=== PATIENT | male | born 1945 | race African-American/Black ===

== ENCOUNTER 2016-11-10 11:00 | Emergency (ER) | payer MEDICARE, BC ==
[~2016-11-10] VITALS: Ht 182.9 cm; Wt 102.0 kg
[~2016-11-10 11:00] MED LIST: SIMV10TA6 PO
[2016-11-10 11:54] VITALS: BP 136/86
[2016-11-10 12:19] LABS: CLARITY URINE CLEAR (CLEAR); COLOR URINE YELLOW (YELLOW); GLUCOSE URINE NEGATIVE (NEGATIVE); KETONES URINE NEGATIVE (NEGATIVE); LEUKOCYTE ESTERASE URINE NEGATIVE (NEGATIVE); NITRITE URINE NEGATIVE (NEGATIVE); OCCULT BLOOD URINE 1+ (NEGATIVE); PROTEIN URINE NEGATIVE (NEGATIVE); SPECIFIC GRAVITY URINE 1.015 (1.005-1.030); UROBILINOGEN URINE 0.2 E.U./dL (0.2-1.0)
[2016-11-10 12:22] LABS: BACTERIA URINE NONE SEEN; CALCIUM PHOSPHATE CRYSTALS UR NONE SEEN /lpf; RBC URINE NONE SEEN /hpf (0-2); SQUAMOUS EPITHELIAL CELL URINE NONE SEEN /lpf (RARE/1+); WAXY CASTS URINE NONE SEEN /lpf; WBC URINE NONE SEEN /hpf (0-2); YEAST URINE NONE SEEN
[2016-11-10] MEDS ORDERED: KETOROLAC 60MG/2ML VIAL IM ONE (13:00)
== END 2016-11-10 13:21 | disposition home or self-care (01) ==
LOC: ER 12:03
DX: N20.0 Calculus of kidney (principal); E11.9 Type 2 diabetes mellitus without complications; I10 Essential (primary) hypertension; Z98.890 Other specified postprocedural states
CPT/HCPCS: 81001; 96372; 99283; J1885

== ENCOUNTER → 2018-01-15 | Outpatient (CLI) | payer MEDICARE, BC ==
[~2018-01-15] MED LIST changes: +ASPIRIN; +IOHEXOL-300 100 ML BOTTLE ONE; +METFORMIN; +SIMVASTATIN
== END | disposition home or self-care (01) ==
LOC: NM 07:10
PROVIDERS: ATTEND Urology
DX: C61 Malignant neoplasm of prostate (principal); I10 Essential (primary) hypertension; E11.9 Type 2 diabetes mellitus without complications
CPT/HCPCS: 72193; 78306; A9503; Q9967

== ENCOUNTER 2019-08-07 12:03 | Emergency (ER) | payer MEDICARE, BC ==
[~2019-08-07] VITALS: Ht 185.4 cm; Wt 90.0 kg
[~2019-08-07 12:03] MED LIST changes: -IOHEXOL-300 100 ML BOTTLE ONE; -SIMV10TA6 PO; +SIMV10TA97 PO
[2019-08-07 14:28] VITALS: BP 123/96
[2019-08-07] MEDS ORDERED: KETOROLAC 60MG/2ML VIAL IM ONE (15:30)
== END 2019-08-07 15:50 | disposition home or self-care (01) ==
LOC: ER 12:14
DX: M54.5 Low back pain (principal); E11.9 Type 2 diabetes mellitus without complications; I10 Essential (primary) hypertension; Z98.890 Other specified postprocedural states
CPT/HCPCS: 96372; 99283; J1885

== ENCOUNTER 2020-08-11 20:53 | Emergency (ER) | payer MEDICARE, BC ==
[~2020-08-11] VITALS: Ht 182.9 cm; Wt 90.0 kg
[2020-08-12 01:16] VITALS: BP 140/83
== END 2020-08-12 01:17 | disposition home or self-care (01) ==
LOC: ER 20:53
DX: R13.10 Dysphagia, unspecified (principal); I10 Essential (primary) hypertension
CPT/HCPCS: 99283

== ENCOUNTER 2021-06-14 14:38 | Inpatient (IN) | payer MEDICARE, BC ==
[~2021-06-14] VITALS: Ht 182.9 cm; Wt 77.8 kg
[2021-06-14 16:01] LABS: BASOPHILS % 0.2 % (0.0-2.0); EOSINOPHILS % 0.1 % (0.0-5.0); HEMATOCRIT. 40.5 % (42.0-52.0); HEMOGLOBIN. 13.4 g/dL (14.0-18.0); LYMPHOCYTES % 8.5 % (20.0-50.0); MEAN CORPUSCULAR HEMOGLOBIN 31.2 pg (28.0-32.0); MEAN CORPUSCULAR VOLUME 94.1 fL (80.0-94.0); MEAN PLATELET VOLUME 9.2 fl (7.4-10.4); MONOCYTES % 4.8 % (2.0-8.0); NEUTROPHILS % 86.4 % (40.0-76.0); PLATELET 117 x1000/uL (130-400); RED BLOOD CELL COUNT 4.31 mill/uL (4.7-6.1); RED CELL DISTRIBUTION WIDTH 14.4 % (11.6-14.6)
[2021-06-14 16:06] LABS: CHLORIDE 106 mEq/L (98-107)
[2021-06-14 16:12] LABS: PARTIAL THROMBOPLASTIN TIME 26.5 sec (23.4-31.0); PROTHROMBIN TIME 10.9 sec (9.6-11.0)
[2021-06-14] MEDS ORDERED: ONDANSETRON HCL 4MG/2ML INJ IM NR (16:30)
[2021-06-14] MEDS ORDERED: FAMOTIDINE 20MG/2ML VIAL IV NR (16:30)
[2021-06-14] MEDS ORDERED: FAMO20TA8 MT (18:00)
[2021-06-15] VITALS (7 sets, daily range): BP systolic 125–145; BP diastolic 53–73
[2021-06-15] MEDS ORDERED: DEXTROSE 50% WATER 50ML SYRINGE IV PRN (01:15)
[2021-06-15] MEDS ORDERED: HYDROMORPHONE HCL/PF 2MG/ML CPJ IV PRN (01:15)
[2021-06-15] MEDS ORDERED: NALOXONE HCL 0.4 MG/ML 1ML VIAL IV PRN (01:30)
[2021-06-15] MEDS ORDERED: SODIUM CHLORIDE 0.9% 1,000 ML IV SCH (01:30)
[2021-06-15] MEDS ORDERED: ATOR40TA70 MT (01:38)
[2021-06-15] MEDS ORDERED: MAGN400C PO (01:38)
[2021-06-15] MEDS ORDERED: METF500S7 PO (01:39)
[2021-06-15] MEDS ORDERED: BACL5TAB PO (01:39)
[2021-06-15] MEDS ORDERED: UBID100C12 PO (01:40)
[2021-06-15] MEDS ORDERED: TAMS-11 PO (01:41)
[2021-06-15] MEDS ORDERED: MULT-1146 PO (01:41)
[2021-06-15] MEDS ORDERED: TURM500C6 PO (01:59)
[2021-06-15] MEDS ORDERED: GLUC-113 PO (01:59)
[2021-06-15] MEDS ORDERED: TRIA1TAB92 PO (01:59)
[2021-06-15] MEDS ORDERED: CHRO1000 PO (02:00)
[2021-06-15] MEDS: BLOOD SUGAR DIAGNOSTIC STRIP TEST SCH ×4 (06:17→21:00)
[2021-06-15] MEDS: INSULIN LISPRO 100 UNITS/ML SUBCUT SCH ×4 (06:17→21:00)
[2021-06-15 09:17] LABS: BASOPHILS % 0.4 % (0.0-2.0); EOSINOPHILS % 0.7 % (0.0-5.0); HEMATOCRIT. 37.6 % (42.0-52.0); HEMOGLOBIN. 12.3 g/dL (14.0-18.0); LYMPHOCYTES % 18.1 % (20.0-50.0); MEAN CORPUSCULAR HEMOGLOBIN 31.2 pg (28.0-32.0); MEAN CORPUSCULAR VOLUME 95.2 fL (80.0-94.0); MEAN PLATELET VOLUME 9.9 fl (7.4-10.4); MONOCYTES % 10.2 % (2.0-8.0); NEUTROPHILS % 70.6 % (40.0-76.0); PLATELET 109 x1000/uL (130-400); RED BLOOD CELL COUNT 3.95 mill/uL (4.7-6.1)
[2021-06-15 09:27] LABS: CHLORIDE 105 mEq/L (98-107)
[2021-06-15] MEDS ORDERED: DEXT 5%/0.9% NACL 1,000 ML IV SCH (10:45)
[2021-06-15] MEDS: PANTOPRAZOLE SODIUM 40 MG/VIAL IV SCH ×2 (12:21→20:54)
[2021-06-15] MEDS ORDERED: MIDAZOLAM HCL 5 MG/5 ML VIAL ONE (13:17)
[2021-06-15] MEDS ORDERED: FENTANYL CITRATE/PF 50MCG/ML 2ML VIAL ONE (13:18)
[2021-06-15] MEDS ORDERED: MIDAZOLAM HCL 5 MG/5 ML VIAL IV PRN (13:38)
[2021-06-15] MEDS ORDERED: FENTANYL CITRATE/PF 50MCG/ML 2ML VIAL IV PRN (13:39)
[2021-06-15 20:38] LABS: INR 1.1; PROTHROMBIN TIME 11.5 sec (9.6-11.0)
[2021-06-16] VITALS: BP 127/71
[2021-06-16 04:00] VITALS: BP 131/70
[2021-06-16] MEDS: INSULIN LISPRO 100 UNITS/ML SUBCUT SCH (05:34)
[2021-06-16] MEDS: BLOOD SUGAR DIAGNOSTIC STRIP TEST SCH (05:34)
[2021-06-16 06:22] LABS: BASOPHILS % 0.3 % (0.0-2.0); EOSINOPHILS % 0.9 % (0.0-5.0); HEMATOCRIT. 35.2 % (42.0-52.0); LYMPHOCYTES % 17.5 % (20.0-50.0); MEAN CORPUSCULAR HEMOGLOBIN 32.3 pg (28.0-32.0); MEAN CORPUSCULAR VOLUME 94.7 fL (80.0-94.0); MEAN PLATELET VOLUME 10.5 fl (7.4-10.4); MONOCYTES % 8.8 % (2.0-8.0); NEUTROPHILS % 72.5 % (40.0-76.0); PLATELET 108 x1000/uL (130-400); RED BLOOD CELL COUNT 3.71 mill/uL (4.7-6.1); RED CELL DISTRIBUTION WIDTH 14.8 % (11.6-14.6)
[2021-06-16 06:53] LABS: CHLORIDE 108 mEq/L (98-107)
[2021-06-16 08:00] VITALS: BP 124/58
[2021-06-16] MEDS: PANTOPRAZOLE SODIUM 40 MG/VIAL IV SCH (08:42)
[2021-06-16 09:51] VITALS: BP 124/58
== END 2021-06-16 10:15 | disposition home or self-care (01) | DRG 392 ==
LOC: ER 14:38 → 8WST 21:08 → EDBEDREQTM 21:11 → EDBEDREQ 21:11 → ENRESERV 23:14
PROVIDERS: ADMIT Hospitalist; ATTEND Hospitalist
PROC: 0D738ZZ Dilation of Lower Esophagus, Via Natural or Artificial Opening Endoscopic (ICD-10-PCS; principal; 2021-06-15)
PROC: 0DB78ZX Excision of Stomach, Pylorus, Via Natural or Artificial Opening Endoscopic, Diagnostic (ICD-10-PCS; 2021-06-15)
DX: K22.2 Esophageal obstruction (principal); I10 Essential (primary) hypertension; R73.03 Prediabetes; D69.6 Thrombocytopenia, unspecified; K29.70 Gastritis, unspecified, without bleeding; K44.9 Diaphragmatic hernia without obstruction or gangrene; K57.90 Diverticulosis of intestine, part unspecified, without perforation or abscess without bleeding; Z20.822 Contact with and (suspected) exposure to COVID-19; F12.90 Cannabis use, unspecified, uncomplicated; Z82.49 Family history of ischemic heart disease and other diseases of the circulatory system; Z79.82 Long term (current) use of aspirin
CPT/HCPCS: 36415; 70360; 71045; 80048; 80076; 82962; 84484; 85025; 87426; 88305; 93005; 99152; 99285; C9113; J2250; J2405; J3010; J3490; J7042; G0500